=== PATIENT | male | born 1985 | race Caucasian/White ===

== ENCOUNTER 2023-05-10 12:06 | Outpatient (RCR) | payer OTHER, SELFPAY | END 2023-05-10 23:59 | disposition home or self-care (01) | LOC: RPT 12:06 | PROVIDERS: ATTENDING PHYSICIAN Urology; PRIMARYCARE PHYSICIAN Family Medicine | DX: M62.89 Other specified disorders of muscle (principal); R10.2 Pelvic and perineal pain; R35.1 Nocturia; Z73.6 Limitation of activities due to disability | CPT/HCPCS: 97110; 97112; 97530 ==

== ENCOUNTER 2023-06-10 12:53 | Outpatient (RCR) | payer OTHER, SELFPAY | END 2023-06-10 23:59 | disposition home or self-care (01) | LOC: RPT 12:53 | PROVIDERS: ATTENDING PHYSICIAN Urology; PRIMARYCARE PHYSICIAN Family Medicine | DX: M62.89 Other specified disorders of muscle (principal); R10.2 Pelvic and perineal pain; R35.1 Nocturia; Z73.6 Limitation of activities due to disability | CPT/HCPCS: 97110; 97140; 97530 ==

== ENCOUNTER 2023-07-08 11:50 | Outpatient (RCR) | payer OTHER, SELFPAY | END 2023-07-08 23:59 | disposition home or self-care (01) | LOC: RPT 11:50 | PROVIDERS: ATTENDING PHYSICIAN Urology; PRIMARYCARE PHYSICIAN Family Medicine | DX: M62.89 Other specified disorders of muscle (principal); R10.2 Pelvic and perineal pain; R35.1 Nocturia | CPT/HCPCS: 97110; 97140; 97530 ==

== ENCOUNTER 2023-08-05 13:05 | Outpatient (RCR) | payer OTHER, SELFPAY | END 2023-08-05 23:59 | disposition home or self-care (01) | LOC: RPT 13:05 | PROVIDERS: ATTENDING PHYSICIAN Urology; PRIMARYCARE PHYSICIAN Family Medicine | DX: M62.89 Other specified disorders of muscle (principal); R10.2 Pelvic and perineal pain; R35.1 Nocturia; N94.10 Unspecified dyspareunia; Z73.6 Limitation of activities due to disability | CPT/HCPCS: 97530 ==

== ENCOUNTER 2023-08-19 13:15 | Outpatient (RCR) | payer OTHER, SELFPAY | END 2023-08-19 23:59 | disposition home or self-care (01) | LOC: RPT 13:15 | PROVIDERS: ATTENDING PHYSICIAN Urology; PRIMARYCARE PHYSICIAN Family Medicine | DX: M62.89 Other specified disorders of muscle (principal); R10.2 Pelvic and perineal pain; R35.1 Nocturia; Z73.6 Limitation of activities due to disability | CPT/HCPCS: 97110; 97530 ==

== ENCOUNTER → 2023-09-05 08:18 | Outpatient (REF) | payer OTHER, SELFPAY | LOC: HWRAD 08:18 | PROVIDERS: ATTENDING PHYSICIAN Physician Assistant; REFERRING PHYSICIAN Internal Medicine | DX: R14.0 Abdominal distension (gaseous) (principal); R10.9 Unspecified abdominal pain | CPT/HCPCS: 76700 ==

== ENCOUNTER → 2023-09-19 08:53 | Emergency (ER) | payer OTHER, SELFPAY ==
[2023-09-19 09:00] VITALS: BP 175/119
--- NOTE | 2023-09-19 09:04 | ED.PDOC.TR ---
ED Provider Triage
-
Patient seen by provider in Triage?: Seen in Triage
38-year-old male presenting to the emergency department for evaluation with palpitations and elevated heart rate and blood pressure at home for the last 2 days. The symptoms may have been ongoing for longer than this but the last 2 days has been
more symptomatic. He does note a history of anxiety and has occasions for this but states his doctor was told not to take some the symptoms may be related. Heart rate elevated in triage. Labs including D-dimer ordered.
[2023-09-19 09:20] LABS: % Basophils 0.7 % (0-2); % Eosinophils 0.2 % (0-6); % Immature Granulocytes 0.2 % (0-0.5); % Lymphocytes 12.1 % (20.5-51.1); % Monocytes 5.6 % (1.7-9.3); % Neutrophils 81.2 % (42.2-75.2); Absolute Basophils 0.1 10^3/uL (0-0.2); Absolute Lymphocytes 1.1 10^3/uL (1.2-3.4); Absolute Monocytes 0.5 10^3/uL (0.1-0.6); Absolute Neutrophils 7.6 10^3/uL (1.4-6.5); Hematocrit 44.4 % (39.0-52.0); Hemoglobin 16.4 g/dL (13.0-18.0); Mean Corp Hgb Conc. 36.9 g/dL (33.0-37.0); Mean Corpuscular Hgb 29.9 pg (27.0-31.0); Mean Platelet Volume 9.5 fL (7.4-10.4); Nucleated Red Blood Cells % 0 % (-); Platelet Count 336 10^3/uL (130-400); Red Blood Cell Count 5.48 10^6/uL (4.70-6.10); Red Cell Dist. Width 12.5 % (11.5-14.5); White Blood Cell Count 9.4 10^3/uL (4.8-10.8)
[2023-09-19 09:40] LABS: D-Dimer < 0.27 ug/mlFEU (0.00-0.50)
[2023-09-19 09:42] LABS: ALT (SGPT) 22 U/L (0-50); AST (SGOT) 32 U/L (17-59); Albumin 5.5 g/dl (3.5-5.0); Alkaline Phosphatase 67 U/L (38-126); Blood Urea Nitrogen 12 mg/dl (9-20); Calcium 10.5 mg/dl (8.4-10.2); Carbon Dioxide 27 mmol/L (22-30); Chloride 102 mmol/L (98-107); Glucose 147 mg/dl (70-99); Potassium 3.5 mmol/L (3.5-5.1); Sodium 143 mmol/L (135-145); Total Bilirubin 2.2 mg/dl (0.2-1.3); Total Protein 8.1 g/dl (6.3-8.2); eGFR > 60.00
[2023-09-19 09:50] LABS: Troponin I < 0.012 ng/ml
--- NOTE | 2023-09-19 09:50 | ED.GENMED ---
History of Present Illness
General
Chief Complaint: Heart Rate Problem
Source: patient
Time Seen by Provider: 09/19/23 09:49
Travel History
Have you had any contact with someone who has COVID-19?: No
Do you have any symptoms of coronavirus? Fever > 100 degrees, chills, cough, shortness of breath, sore throat, loss of taste or smell, muscle aches, or headache?: No
History of Present Illness
History of Present Illness:
38-year-old male presenting emergency department for evaluation of elevated heart rate and blood pressure at home for the last 2 days. He states that the elevated heart rate has been something that is been ongoing for an extended period of time.
He notes that he has been on medications for this in the past and states that his primary doctor had taken him off a couple of his anxiety medications but is not sure why. He does note his primary care provider provided him with a prescription for
Ativan which he will be picking up later today. He denies any fevers or infectious symptoms or any other concerns at this time.
Past History
Past History
ED Past Medical History: Psychiatric and Other (Frequent ear infections)
ED Past Surgical History: Other (Bilateral myringotomies with tubes)
Social History
Tobacco: Non-smoker
Alcohol: Occasional
Drug: None
Personal: Single
Living: with family
Employment: Employed
Review of Systems
Review of Systems
All Other Systems: ROS reviewed and negative except as documented in HPI and ROS
Phy Exam
Physical Exam
Physical Exam:
GENERAL: Alert , in no apparent distress
EYE: conjunctiva clear
NECK: Supple
ENT: o/p clr, mmm.
CARDIAC: Tachycardic rate and rhythm, no murmur
LUNGS: Clear breath sounds bilaterally, no acute respiratory distress, no wheezes/rales/rhonchi
NEUROLOGICAL: Alert and oriented
SKIN: Warm and dry, skin intact.
MUSCULOSKELETAL: well perfused.
PSYCH: Normal and appropriate interaction.
Scores
Heart Failure Risk
Heart Failure Risk Score: Not Applicable
Heart Score for Chest Pain Patients
STEMI patient?: Not applicable
Withdrawal Assessment of Alcohol
Withdrawal Assessment Completed?: Not applicable
Course
Orders/Labs/Results
Orders:
Orders
09/19/23 08:55
EKG [Electrocardiogram (*1)] Urgent
Reason for Study: Chest Pain
EKG- Treatment ONCE
09/19/23 09:13
Complete Blood Count/With Diff Urgent
Comprehensive Metabolic Panel Urgent
D-Dimer Urgent
TSH Reflex To Free T4 Urgent
Troponin I Urgent
Abnormal Lab Results
09/19/23
09:13
Absolute Neuts (auto) 7.6 H 10^3/uL
(1.4-6.5)
Absolute Lymphs (auto) 1.1 L 10^3/uL
(1.2-3.4)
Neutrophils % 81.2 H %
(42.2-75.2)
Lymphocytes % 12.1 L %
(20.5-51.1)
Glucose 147 H mg/dl
(70-99)
Calcium 10.5 H mg/dl
(8.4-10.2)
Total Bilirubin 2.2 H mg/dl
(0.2-1.3)
Albumin 5.5 H g/dl
(3.5-5.0)
09/19/23 09:13
09/19/23 09:13
Vital Signs
Initial and Last Documented VS:
Initial Vital Signs
Temp Pulse Resp BP Pulse Ox
98.2 F 120 16 175/119 100
09/19/23 09:00 09/19/23 09:00 09/19/23 09:00 09/19/23 09:00 09/19/23 09:00
Last Documented Vital Signs
Temp Pulse Resp BP Pulse Ox
98.2 F 120 16 175/119 100
09/19/23 09:00 09/19/23 09:00 09/19/23 09:00 09/19/23 09:00 09/19/23 09:00
MDM/Problems Addressed
Differential Diagnosis Includes:
Palpitations, thyroid disorder, electrolyte disturbance, PE, less concern for ACS, anxiety
MDM/Problems Addressed:
38-year-old male present emergency department for evaluation of palpitations. This been ongoing for the last 2 days but patient does note he has had the symptoms in the past. Patient's lab work was initiated in triage. He has a negative D-dimer,
negative troponin and otherwise reassuring labs patient was advised on his elevated blood pressure and importance of following up with primary care provider. He notes that he needs to leave the hospital as he just received a phone call from school
that his daughter was vomiting. I do not feel patient needs any further emergency department care and can safely follow-up with primary care provider but he is aware of return precautions to the ER.
Chronic conditions affecting care: Psychiatric illness (Anxiety)
*Pulse Oximetry
Patient hypoxic: no
*EKG
Interpreted by ED Provider?: Yes
Heart Rate: 120
Rate: tachycardiac
Rhythm: sinus
[place]: normal axis
Ischemia: no ischemia
*Critical Care Note
Total Time (30-74mins, 75-104mins- exclusive of procedures): Not Applicable
ED Attending Note
-
Portions of this chart may have been created with voice recognition software.� Occasional wrong word or��sound alike� substitutions may have occurred due to the inherent limitations of voice recognition software.
Discharge Plan
Departure
Patient Disposition: Home (Routine Discharge)
Date of Disposition: 09/19/23
Time of Disposition: 09:50
Patient with high blood pressure during this ER visit?: Yes
Discharge Problem:
Palpitations, Elevated blood pressure reading
Instructions: Palpitations (DC)
Prescriptions:
No Action
Wellbutrin
300 mg PO DAILY
hydrochlorothiazide
12.5 mg PO DAILY
levothyroxine
125 mcg PO DAILY
Interventions
Interventions:
*ED COVID-19 Vaccine History Last Done: 09/19/23 09:03
Discharge Date and Time
Print Language: IRANIAN
[2023-09-19 10:08] LABS: TSH Reflex To Free T4 1.82 uIU/ml (0.47-4.68)
== END | disposition home or self-care (01) ==
LOC: EMR 08:53
PROVIDERS: Physician Assistant Medical; EMERGENCY PHYSICIAN Student in an Organized Health Care Education/Training Program; FAMILY PHYSICIAN Internal Medicine
DX: R00.2 Palpitations (principal); R03.0 Elevated blood-pressure reading, without diagnosis of hypertension; F41.9 Anxiety disorder, unspecified
CPT/HCPCS: 99283; 80053; 84443; 84484; 85025; 85379; 93005

== ENCOUNTER → 2023-10-09 10:17 | Outpatient (REF) | payer OTHER, SELFPAY | LOC: RCS 10:17 | PROVIDERS: ATTENDING PHYSICIAN Internal Medicine | DX: R00.0 Tachycardia, unspecified (principal) | CPT/HCPCS: 93225; 93226 ==

== ENCOUNTER → 2023-10-19 07:04 | Outpatient (REF) | payer OTHER, SELFPAY | LOC: RCS 07:04 | PROVIDERS: ATTENDING PHYSICIAN Internal Medicine | DX: R00.0 Tachycardia, unspecified (principal) | CPT/HCPCS: 93306 ==

== ENCOUNTER 2023-11-06 10:50 | Emergency (ER) | payer OTHER, SELFPAY ==
[2023-11-06 10:56] VITALS: BP 136/95
[2023-11-06 11:14] VITALS: BP 139/95; BMI 22.8
--- NOTE | 2023-11-06 11:15 | ED.GENMED ---
History of Present Illness
General
Chief Complaint: Rectal Bleeding
Time Seen by Provider: 11/06/23 11:08
History of Present Illness
History of Present Illness:
HPI: The patient presents with ongoing rectal bleeding and had rectal pain during a bowel movement today. He denies any significant abdominal pain. He had a colonoscopy 4 days ago at [facility] (performed at [facility] as opposed to [place] as
his primary care doctor through the [facility]). Colonoscopy was performed due to unintentional weight loss and GI bleeding. He was not informed of any abnormal findings or biopsies that were performed during the colonoscopy. However, he was
informed that you had hemorrhoids.
EXAM:
GENERAL: Well appearing in no distress
HEENT: Moist oral mucosa
CARDIOVASCULAR: No murmurs, normal heart rate, regular rhythm, No chest wall tenderness
PULMONARY: No respiratory distress, breath sounds are clear and equal
ABDOMEN: Soft with no peritoneal signs, no tenderness, heme-positive reddish-brown stool, no external hemorrhoids
NEUROLOGIC: Excellent strength all extremities, no coordination deficits
PSYCHIATRIC: Appropriate mental status, normal insight and judgement
EXTREMITIES: Nontender, no edema, moves all extremities equally
SKIN: Abnormal pigmented regions on skin noted
TIME OF INITIAL ENCOUNTER: 11:10 AM
NUMBER AND COMPLEXITY OF PROBLEMS ADDRESSED AT THE ENCOUNTER
� Chronic conditions affecting care: Anxiety/depression, high blood pressure, thyroid disease
� Acute Exacerbation and/or Progression of Chronic Illness: This is an acute problem
� Differential Diagnosis includes: Hemorrhoidal bleeding, diverticular bleeding unlikely given the lack of diverticular disease seen on colonoscopy recently, bleeding AVM unlikely
AMOUNT AND/OR COMPLEXITY OF DATA TO BE REVIEWED AND ANALYZED
� I performed an independent evaluation of and my interpretation is:
EKG:
CT:
X-rays:
Laboratory Studies: White count 8.3, hemoglobin 14.3, bicarb 31 but otherwise chemistries unremarkable
Other:
� Review of other/old records: Hemoglobin on 09/19/2023 was 16.4
� Clinical information was obtained by an independent historian: None needed
� Prescriptions/Medications Considered but not given:
� Further testing considered but not performed: Considered CT imaging however the patient has no significant tenderness on examination
RISK OF COMPLICATIONS AND/OR MORBIDITY OR MORTALITY OF PATIENT MANAGEMENT
� Social determinants of health affecting care: Lives at home
� Discussion with other providers:
� Escalation of care including admission/observation vs risk of discharge considered: The patient is very well-appearing. He has no significant abdominal tenderness. He does have heme positive reddish-brown stool. He is
hemodynamically stable. Suspect more of an internal hemorrhoidal etiology as he describes a bright red type of appearance. He does not have melena on exam. BUN is normal. The patient has been to Dr. Gilmore in the past locally and I recommend that
he follows up with him. The colonoscopy was reviewed on the patient's phone which showed normal TI and there was no report of biopsies taken. He is very well-appearing on reassessment at 12:10 PM.
Past History
Past History
ED Past Medical History: Psychiatric and Other (Frequent ear infections)
ED Past Surgical History: Other (Bilateral myringotomies with tubes)
Social History
Tobacco: Non-smoker
Alcohol: Occasional
Drug: None
Personal: Single
Living: with family
Employment: Employed
Phy Exam
Physical Exam
Physical Exam:
See HPI
Course
Orders/Labs/Results
Orders:
Orders
11/06/23 11:23
Basic Metabolic Panel Urgent
Complete Blood Count/With Diff Urgent
Abnormal Lab Results
11/06/23
11:23
RBC 4.66 L 10^6/uL
(4.70-6.10)
Neutrophils % 77.1 H %
(42.2-75.2)
Lymphocytes % 15.4 L %
(20.5-51.1)
Carbon Dioxide 31 H mmol/L
(22-30)
Glucose 103 H mg/dl
(70-99)
11/06/23 11:23
11/06/23 11:23
Vital Signs
Initial and Last Documented VS:
Initial Vital Signs
Temp Pulse Resp BP Pulse Ox
98.2 F 79 18 136/95 97
11/06/23 10:56 11/06/23 10:56 11/06/23 10:56 11/06/23 10:56 11/06/23 10:56
Last Documented Vital Signs
Temp Pulse Resp BP Pulse Ox
98.2 F 73 13 130/93 99
11/06/23 10:56 11/06/23 12:00 11/06/23 12:00 11/06/23 12:00 11/06/23 12:00
*Critical Care Note
Total Time (30-74mins, 75-104mins- exclusive of procedures): Not Applicable
ED Attending Note
-
Portions of this chart may have been created with voice recognition software.� Occasional wrong word or��sound alike� substitutions may have occurred due to the inherent limitations of voice recognition software.
Discharge Plan
Departure
Patient Disposition: Home (Routine Discharge)
Date of Disposition: 11/06/23
Time of Disposition: 12:11
Patient with high blood pressure during this ER visit?: Yes
Discharge Problem:
Anal or rectal pain
Instructions: Bloody Stools, Adult (DC)
Prescriptions:
No Action
levothyroxine 75 mcg Tablet
75 mcg PO DAILY
omeprazole 20 mg Capsule,Delayed Release(Dr/Ec)
20 mg PO DAILY
escitalopram oxalate 10 mg Tablet
10 mg PO HS
hydrochlorothiazide 12.5 mg Tablet
12.5 mg PO DAILY
Referrals:
Brislin,Fady M., DO [Family Provider] -
Everett Gilmore MD [Active] - Follow up in 5-7 days
Activity Restrictions/Additional Instructions:
I recommend that you follow-up with Dr. Gilmore. Your hemoglobin level is still normal at 14.3. Other basic labs normal. Return here if worse. You did have heme positive reddish-brown stool on digital rectal examination.
Interventions
Interventions:
*Risk Screen - Suicide Last Done: 11/06/23 11:14
*General Assessment Last Done: 11/06/23 11:14
*Neglect/Abuse Screening Last Done: 11/06/23 11:14
ED- Fall Risk Assessment Last Done: 11/06/23 11:14
*ED COVID-19 Vaccine History Last Done: 11/06/23 10:56
IL-Wemnzb-Rfphiejrnc Assessment Last Done: 11/06/23 11:14
ED- Cardiac Assessment Last Done: 11/06/23 11:14
ED- Pulmonary Assessment Last Done: 11/06/23 11:14
Discharge Date and Time
Print Language: UPPER SORBIAN
[2023-11-06 11:16] VITALS: BP 139/95
[2023-11-06 11:33] LABS: % Eosinophils 1.2 % (0-6); % Immature Granulocytes 0.4 % (0-0.5); % Lymphocytes 15.4 % (20.5-51.1); % Monocytes 4.9 % (1.7-9.3); % Neutrophils 77.1 % (42.2-75.2); Absolute Basophils 0.1 10^3/uL (0-0.2); Absolute Eosinophils 0.1 10^3/uL (0-0.7); Absolute Lymphocytes 1.3 10^3/uL (1.2-3.4); Absolute Monocytes 0.4 10^3/uL (0.1-0.6); Absolute Neutrophils 6.4 10^3/uL (1.4-6.5); Hematocrit 39.4 % (39.0-52.0); Hemoglobin 14.3 g/dL (13.0-18.0); Mean Corp Hgb Conc. 36.3 g/dL (33.0-37.0); Mean Corpuscular Hgb 30.7 pg (27.0-31.0); Mean Corpuscular Volume 84.5 fL (80.0-94.0); Mean Platelet Volume 9.6 fL (7.4-10.4); Nucleated Red Blood Cells % 0 % (-); Platelet Count 229 10^3/uL (130-400); Red Blood Cell Count 4.66 10^6/uL (4.70-6.10); Red Cell Dist. Width 12.6 % (11.5-14.5); White Blood Cell Count 8.3 10^3/uL (4.8-10.8)
[2023-11-06 12:00] VITALS: BP 130/93
[2023-11-06 12:01] LABS: Blood Urea Nitrogen 17 mg/dl (9-20); Calcium 9.9 mg/dl (8.4-10.2); Carbon Dioxide 31 mmol/L (22-30); Chloride 102 mmol/L (98-107); Estimated Creatinine Clearance 123 ml/min; Glucose 103 mg/dl (70-99); Sodium 139 mmol/L (135-145); eGFR > 60.00
[2023-11-06 12:31] VITALS: BP 104/72
== END 2023-11-06 12:40 | disposition home or self-care (01) ==
LOC: EMR 10:50
PROVIDERS: EMERGENCY PHYSICIAN Emergency Medicine; FAMILY PHYSICIAN Internal Medicine
DX: K62.89 Other specified diseases of anus and rectum (principal); R03.0 Elevated blood-pressure reading, without diagnosis of hypertension; F41.9 Anxiety disorder, unspecified; F32.A Depression, unspecified
CPT/HCPCS: 99283; 80048; 85025

== ENCOUNTER 2024-02-08 06:39 | Emergency (ER) | payer OTHER, SELFPAY ==
[2024-02-08 06:42] VITALS: BP 161/100
--- NOTE | 2024-02-08 07:49 | ED.GENMED ---
History of Present Illness
General
Chief Complaint: Abdominal Symptoms
Source: patient
Time Seen by Provider: 02/08/24 07:37
History of Present Illness
History of Present Illness:
38yoM with a history of hypertension, hypothyroidism, GERD, and anxiety presenting for evaluation of abdominal pain. Patient reports constant pain in his periumbilical and RLQ region for the past 2 weeks. Pain intermittently radiates to the back.
He reports a constant discomfort, fullness, and bloating sensation. He also was having nausea and decreased appetite. Patient had a bowel movement this morning after not having a bowel movement throughout the week. He has not been taking anything
[id number] for his symptoms. He admits to being under a lot of stress and is currently from his . He has been drinking alcohol more frequently recently. Last drink was 3 days ago. He denies any fevers, chills, dysuria,
shortness of breath, chest pain. Only previous abdominal surgery is a left inguinal hernia repair with mesh. Of note, patient had an EGD and colonoscopy in October of this year which were both normal.
Past History
Past History
ED Past Medical History: Psychiatric and Other (Frequent ear infections)
ED Past Surgical History: Other (Bilateral myringotomies with tubes)
Social History
Tobacco: Non-smoker
Alcohol: Occasional
Drug: None
Personal: Single
Living: with family
Employment: Employed
Phy Exam
General Physical Exam
General Presentation: well appearing and no apparent distress
General age: appears stated age
General Skin: warm and dry
General Habitus: normal
General Mental: alert
ENT Exam
ENT Exam: normocephalic
Cardiovascular Exam
Cardiovascular Exam: regular rate/rhythm
Pulmonary Exam
Pulmonary Exam: lungs clear, no respiratory distress, no crackles and no wheezing
Gastrointestinal Exam
Gastrointestinal Exam: soft, non distended and other (+Mild tenderness to periumbilical and RLQ regions. Abdomen soft, non-distended. No rebound or guarding. )
[place] Coma Scale
Eye Opening: Spontaneous
Verbal Response: Oriented
Motor Response: Obeys Commands
GCS Total Score: 15
Skin Exam
Skin Exam: normal color and warm/dry
Psychiatric Exam
Psychiatric Exam: normal mood/affect
Course
Orders/Labs/Results
Orders:
Orders
02/08/24 07:48
CT Abd/pelvis W Iv Cont Urgent
Comment:
Reason For Exam: RLQ pain, periumbilical pain, bloating
02/08/24 08:03
Complete Blood Count/With Diff Urgent
Comprehensive Metabolic Panel Urgent
Lipase Urgent
Abnormal Lab Results
02/08/24
08:03
BUN 23 H mg/dl
(9-20)
Total Bilirubin 2.7 H mg/dl
(0.2-1.3)
Albumin 5.2 H g/dl
(3.5-5.0)
02/08/24 08:03
02/08/24 08:03
Vital Signs
Initial and Last Documented VS:
Initial Vital Signs
Temp Pulse BP Pulse Ox
97.7 F 78 161/100 99
02/08/24 06:42 02/08/24 06:42 02/08/24 06:42 02/08/24 06:42
Last Documented Vital Signs
Temp Pulse BP Pulse Ox
97.7 F 78 144/96 99
02/08/24 06:42 02/08/24 06:42 02/08/24 08:12 02/08/24 08:32
MDM/Problems Addressed
Differential Diagnosis Includes:
38yoM here with periumbilical and RLQ pain x 2 weeks. Also c/o nausea, decreased appetite, bloating. He is afebrile and hemodynamically stable. He is well appearing in no distress. No signs of peritonitis on abdominal exam. Differential diagnosis
includes but is not limited to: appendicitis, colitis, epiploic appendagitis, kidney stone, nonspecific abdominal pain
Initial ED plan: Check abdominal labs and CT abdomen. He declines analgesics.
*Critical Care Note
Total Time (30-74mins, 75-104mins- exclusive of procedures): Not Applicable
Update Note
Update Note:
Total bilirubin 2.7 which is similar to prior labs. Remainder of LFTs normal. Labs otherwise unremarkable. CT abdomen is negative for acute findings. Specifically, there is no signs of appendicitis. Patient is stable for discharge. He was advised to
f/u with PCP and ED return precautions discussed. He expressed understanding and is agreeable to plan. He was discharged in stable condition.
ED Attending Note
-
Portions of this chart may have been created with voice recognition software.� Occasional wrong word or��sound alike� substitutions may have occurred due to the inherent limitations of voice recognition software.
Discharge Plan
Departure
Patient Disposition: Home (Routine Discharge)
Date of Disposition: 02/08/24
Time of Disposition: 10:21
Patient with high blood pressure during this ER visit?: Yes
Discharge Problem:
Nonspecific abdominal pain
Instructions: Abdominal Pain
Prescriptions:
No Action
levothyroxine 75 mcg Tablet
75 mcg PO DAILY
omeprazole 20 mg Capsule,Delayed Release(Dr/Ec)
20 mg PO DAILY
escitalopram oxalate 10 mg Tablet
10 mg PO HS
hydrochlorothiazide 12.5 mg Tablet
12.5 mg PO DAILY
Referrals:
UNKNOWN - PT DOES,NOT KNOW [Family Provider] -
Activity Restrictions/Additional Instructions:
Please follow-up with your family doctor. Return to the ER with any new or worsening symptoms.
Interventions
Interventions:
*Risk Screen - Suicide Last Done: 02/08/24 06:42
*General Assessment Last Done: 02/08/24 08:18
*Neglect/Abuse Screening Last Done: 02/08/24 06:42
ED- Fall Risk Assessment Last Done: 02/08/24 08:27
*ED COVID-19 Vaccine History Last Done: 02/08/24 06:47
YD-Wkjijs-Xoojeirlhn Assessment Last Done: 02/08/24 08:22
Discharge Date and Time
Print Language: DJIBOUTIAN
[2024-02-08 08:12] VITALS: BP 144/96
[2024-02-08 08:19] LABS: % Basophils 1.1 % (0-2); % Eosinophils 1.7 % (0-6); % Immature Granulocytes 0.2 % (0-0.5); % Lymphocytes 23.2 % (20.5-51.1); % Monocytes 7.5 % (1.7-9.3); % Neutrophils 66.3 % (42.2-75.2); Absolute Basophils 0.1 10^3/uL (0-0.2); Absolute Eosinophils 0.1 10^3/uL (0-0.7); Absolute Lymphocytes 1.2 10^3/uL (1.2-3.4); Absolute Monocytes 0.4 10^3/uL (0.1-0.6); Absolute Neutrophils 3.5 10^3/uL (1.4-6.5); Hematocrit 44.5 % (39.0-52.0); Hemoglobin 16.2 g/dL (13.0-18.0); Mean Corp Hgb Conc. 36.4 g/dL (33.0-37.0); Mean Corpuscular Hgb 30.4 pg (27.0-31.0); Mean Corpuscular Volume 83.5 fL (80.0-94.0); Mean Platelet Volume 9.8 fL (7.4-10.4); Nucleated Red Blood Cells % 0 % (-); Platelet Count 236 10^3/uL (130-400); Red Blood Cell Count 5.33 10^6/uL (4.70-6.10); Red Cell Dist. Width 12.6 % (11.5-14.5); White Blood Cell Count 5.3 10^3/uL (4.8-10.8)
[2024-02-08 08:30] VITALS: BMI 23.6
[2024-02-08 08:58] LABS: ALT (SGPT) 29 U/L (0-50); AST (SGOT) 31 U/L (17-59); Albumin 5.2 g/dl (3.5-5.0); Alkaline Phosphatase 54 U/L (38-126); Blood Urea Nitrogen 23 mg/dl (9-20); Calcium 10.1 mg/dl (8.4-10.2); Carbon Dioxide 27 mmol/L (22-30); Chloride 101 mmol/L (98-107); Estimated Creatinine Clearance 99 ml/min; Glucose 94 mg/dl (70-99); Lipase 64 U/L (23-300); Potassium 3.7 mmol/L (3.5-5.1); Sodium 141 mmol/L (135-145); Total Bilirubin 2.7 mg/dl (0.2-1.3); Total Protein 7.7 g/dl (6.3-8.2); eGFR > 60.00
[2024-02-08 10:39] VITALS: BP 159/97
== END 2024-02-08 10:40 | disposition home or self-care (01) ==
LOC: EMR 06:39
PROVIDERS: Physician Assistant; EMERGENCY PHYSICIAN Emergency Medicine
DX: R10.33 Periumbilical pain (principal); R10.31 Right lower quadrant pain; R11.0 Nausea; R14.0 Abdominal distension (gaseous); I10 Essential (primary) hypertension; Z73.3 Stress, not elsewhere classified; Z63.0 Problems in relationship with spouse or partner; F41.9 Anxiety disorder, unspecified; E03.9 Hypothyroidism, unspecified; K21.9 Gastro-esophageal reflux disease without esophagitis
CPT/HCPCS: 99284; 74177; 80053; 83690; 85025; Q9967